=== PATIENT | female | born 1990 | race African-American/Black ===

== ENCOUNTER 2016-10-06 17:16 | Emergency (ER) | payer OTHER ==
[2016-10-06 17:40] VITALS: BP 142/71; PULSE 61; TEMP 97.7; BMI 26.6
== END 2016-10-06 20:05 | disposition left against medical advice (07) ==
LOC: JER 17:16
DX: Z53.21 Procedure and treatment not carried out due to patient leaving prior to being seen by health care provider (principal)
CPT/HCPCS: 99281-25

== ENCOUNTER 2017-03-11 16:35 | Emergency (ER) | payer OTHER ==
[2017-03-11 16:43] VITALS: BP 140/64; PULSE 70; TEMP 99.1; BMI 27.9
--- NOTE | 2017-03-11 19:41 | PDOC ---
History of Present Illness - General Chief Complaint: Pain Stated Complaint: EVALUATION Time Seen by Provider: 03/11/17 19:40 - History of Present Illness Initial Comments: 03/11/17 19:53 patient left prior to my evaluation Past History - Past Medical History Allergies/Adverse Reactions: Allergies Allergy/AdvReac Type Severity Reaction Status Date / Time No Known Allergies Allergy Verified 03/11/17 16:43 Home Medications: Ambulatory Orders Sulfamethoxazole/Trimethoprim [Bactrim Ds -] 1 tab PO BID #14 tablet 05/23/16 Asthma: Yes - Psycho/Social/Smoking Cessation Hx Anxiety: No Suicidal Ideation: No Smoking History: Current some day smoker Have you smoked in the past 12 months: No Number of Cigarettes Smoked Daily: 3 Information on smoking cessation initiated: No Hx Alcohol Use: Yes (SOCIAL) Drug/Substance Use Hx: No Substance Use Type: None *Physical Exam - Vital Signs Last Vital Signs Temp Pulse Resp BP Pulse Ox 99.1 F 70 20 140/64 10 L 03/11/17 16:40 03/11/17 16:40 03/11/17 16:40 03/11/17 16:40 03/11/17 16:40 *DC/Admit/Observation/Transfer Diagnosis at time of Disposition: Evaluation by medical service required - Discharge Dispostion Disposition: LEFT BEFORE [facility] - Referrals Referrals: STAFF,NOT ON [Primary Care Provider] -
== END 2017-03-11 20:00 | disposition left against medical advice (07) ==
LOC: JER 16:35
DX: Z53.21 Procedure and treatment not carried out due to patient leaving prior to being seen by health care provider (principal)
CPT/HCPCS: 99281-25

== ENCOUNTER 2017-04-01 15:22 | Emergency (ER) | payer OTHER ==
[2017-04-01 15:43] VITALS: BP 140/58; PULSE 68; TEMP 98.5; BMI 28.3
[2017-04-01] MEDS ORDERED: CYCLOBENZAPRINE HCL 10 MG TABLET (FP) PO ONE (16:20)
[2017-04-01] MEDS ORDERED: KETOROLAC TROMETHAMINE 60 MG/2 ML VIAL IM ONE (16:20)
[2017-04-01] MEDS ORDERED: KETOROLAC TROMETHAMINE 60 MG/2 ML VIAL ONE (16:21)
[2017-04-01] MEDS ORDERED: CYCLOBENZAPRINE HCL 10 MG TABLET (FP) ONE (16:22)
--- NOTE | 2017-04-01 16:28 | PDOC ---
History of Present Illness - General Chief Complaint: Pain Stated Complaint: LT ARM PAIN Time Seen by Provider: 04/01/17 16:11 History Source: Patient Exam Limitations: No Limitations - History of Present Illness Initial Comments: 04/01/17 16:39 she came for evaluation of left shoulder and arm pain. States onset was 2 days ago and is progressively become worse. States was concerned she may have slept on something wrong, denies any knowledge of recent history or exercise change, but has a toddler daughter which involves frequent heavy lifting. Took Naprosyn yesterday with some mild relief. Denies fever, cough, chest pain or palpitations, any rashes or lesions. 04/01/17 17:40 Occurred: reports: just prior to arrival Severity: reports: moderate Pain Location: reports: upper extremity (left shoulder) Modifying Factors: improves with: None Loss of Consciousness: no loss of consciousness Associated Symptoms (Fall): denies symptoms Past History - Travel Traveled outside of the country in the last 30 days: No Close contact w/someone who was outside of country & ill: No - Past Medical History Allergies/Adverse Reactions: Allergies Allergy/AdvReac Type Severity Reaction Status Date / Time No Known Allergies Allergy Verified 04/01/17 15:39 Home Medications: Ambulatory Orders NK [No Known Home Medication] 04/01/17 Asthma: Yes - Psycho/Social/Smoking Cessation Hx Anxiety: No Suicidal Ideation: No Smoking History: Former smoker Have you smoked in the past 12 months: Yes Number of Cigarettes Smoked Daily: 3 Information on smoking cessation initiated: No Hx Alcohol Use: Yes (SOCIAL) Drug/Substance Use Hx: No Substance Use Type: None Trauma Specific PMHX - Complaint Specific PMHX Back Injury: No Neck Injury: No Review of Systems - Review of Systems Able to Perform ROS?: Yes Is the patient limited Maltese proficient: Yes Constitutional: Yes: Symptoms Reported, See HPI, Malaise HEENTM: Yes: See HPI. No: Symptoms Reported Respiratory: Yes: Symptoms reported Musculoskeletal: Yes: Symptoms Reported, See HPI, Joint Pain Integumentary: Yes: Symptoms Reported All Other Systems: Reviewed and Negative *Physical Exam - Vital Signs Last Vital Signs Temp Pulse Resp BP Pulse Ox 98.5 F 68 20 140/58 100 04/01/17 15:39 04/01/17 15:39 04/01/17 15:39 04/01/17 15:39 04/01/17 15:39 - Physical Exam General Appearance: Yes: Nourished, Appropriately Dressed, Apparent Distress HEENT: positive: MARQUITA, Normal ENT Inspection, TMs Normal, Pharynx Normal Neck: positive: Tender, Supple Respiratory/Chest: positive: Lungs Clear Gastrointestinal/Abdominal: positive: Soft. negative: Tender Musculoskeletal: positive: Normal Inspection, Decreased Range of Motion ( however patient able to abduct past 180, forward flexion and posterior fraction. Pain is reproduced with for flexion against resistance at approximately 90. Has strong range of motion to elbow hand and wrist, no pain with supination and pronation at elbow, and no bone tenderness along scapular or clavicular bones. 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, Fully Oriented, Alert, Normal Mood/ Affect, Normal Response, Motor Strength 5/5 *DC/Admit/Observation/Transfer Diagnosis at time of Disposition: Left shoulder strain Qualifiers: Encounter type: initial encounter Qualified Code(s): S46.912A - Strain of unspecified muscle, fascia and tendon at shoulder and upper arm level, left arm , initial encounter - Discharge Dispostion Disposition: HOME Condition at time of disposition: Stable Admit: No - Referrals Referrals: STAFF,NOT ON [Primary Care Provider] - - Patient Instructions Printed Discharge Instructions: DI for Shoulder Sprain Additional Instructions: Rest, ice to area on and off for 15 minutes 4-6 times a day Avoid heavy lifting or exercise until pain and swelling is resolved or until further directed Keep area highly elevated to reduce swelling Use splints/Maxwell wrap as directed Followup with orthopedist in one to 2 days if not improving, if significantly improved may wait one week for followup with orthopedist May use ibuprofen 2-200 mg tablets every 6 hours as needed for pain
== END 2017-04-01 16:46 | disposition home or self-care (01) ==
LOC: JERFT 15:22
PROC: 3E0233Z Introduction of Anti-inflammatory into Muscle, Percutaneous Approach (ICD-10-PCS; principal; 2017-04-01)
DX: S46.912A Strain of unspecified muscle, fascia and tendon at shoulder and upper arm level, left arm, initial encounter (principal); X58.XXXA Exposure to other specified factors, initial encounter; Y93.89 Activity, other specified; Y92.9 Unspecified place or not applicable; Z87.891 Personal history of nicotine dependence; J45.909 Unspecified asthma, uncomplicated
CPT/HCPCS: 96372; 99281-25

== ENCOUNTER 2017-10-03 10:02 | Emergency (ER) | payer OTHER ==
[2017-10-03 10:08] VITALS: TEMP 99; BMI 25.5
--- NOTE | 2017-10-03 10:51 | PDOC ---
History of Present Illness - General History Source: Patient Exam Limitations: No Limitations - History of Present Illness Initial Comments: 10/03/17 11:50 The patient is a 27 year old female with no significant PMH who presents to the emergency department with right upper quadrant pain that began approximately 2 days ago. The patient describes the RUQ pain as squeezing and intermittent. The patient states the RUQ pain is worsened by leaning forward and resolves on its own after a couple of minutes. The patient reports the patient is worse after eating. The patient notes some nausea and dry cough secondary to her RUQ pain. The patient states she went to an Urgent Care and received a UA but left before receiving a diagnosis. The patient denies chest pain, shortness of breath, headache and dizziness. Denies fever, chills, vomit, diarrhea and constipation. Denies dysuria, frequency, urgency and hematuria. Allergies: NKA Past surgical history: None reported. Social history: Alcohol use. Marijuana use. No reported cigarette use. PCP: Dr. Cagle <Clarisse Gaitan - Last Filed: 10/03/17 13:35> <Elaina Amado - Last Filed: 10/03/17 16:06> - General Chief Complaint: Pain Stated Complaint: LOWER RT SIDE ABD PAIN Time Seen by Provider: 10/03/17 10:51 Past History <Clarisse Gaitan - Last Filed: 10/03/17 13:35> - Past Medical History Asthma: Yes COPD: No - Suicide/Smoking/Psychosocial Hx Smoking History: Never smoked Have you smoked in the past 12 months: Yes Number of Cigarettes Smoked Daily: 3 Information on smoking cessation initiated: No Hx Alcohol Use: Yes (SOCIAL) Drug/Substance Use Hx: Yes (JULIETH) Substance Use Type: Marijuana <Elaina Amado - Last Filed: 10/03/17 16:06> - Past Medical History Allergies/Adverse Reactions: Allergies Allergy/AdvReac Type Severity Reaction Status Date / Time No Known Allergies Allergy Verified 10/03/17 10:04 Home Medications: Ambulatory Orders NK [No Known Home Medication] 04/01/17 Review of Systems - Review of Systems Able to Perform ROS?: Yes Comments:: 10/03/17 11:55 ADULT ROS GENERAL/CONSTITUTIONAL: No fever or chills. No weakness. HEAD, EYES, EARS, NOSE AND THROAT: No change in vision. No ear pain or discharge. No sore throat. CARDIOVASCULAR: No chest pain or shortness of breath. RESPIRATORY: No cough, wheezing, or hemoptysis. GASTROINTESTINAL: (+) RUQ pain. (+) Nausea. No vomiting, diarrhea or constipation. GENITOURINARY: No dysuria, frequency, or change in urination. MUSCULOSKELETAL: No joint or muscle swelling or pain. No neck or back pain. SKIN: No rash NEUROLOGIC: No headache, vertigo, loss of consciousness, or change in strength/ sensation. ENDOCRINE: No increased thirst. No abnormal weight change. HEMATOLOGIC/LYMPHATIC: No anemia, easy bleeding, or history of blood clots. ALLERGIC/IMMUNOLOGIC: No hives or skin allergy. <Clarisse Gaitan - Last Filed: 10/03/17 13:35> *Physical Exam - Vital Signs Last Vital Signs Temp Pulse Resp BP Pulse Ox 99.0 F 88 18 125/61 100 10/03/17 10:05 10/03/17 10:05 10/03/17 10:05 10/03/17 10:05 10/03/17 10:05 - Physical Exam Comments: 10/03/17 11:56 GENERAL: Awake, alert, and fully oriented, in no acute distress HEAD: No signs of trauma EYES: PERRLA, EOMI, sclera anicteric, conjunctiva clear ENT: Auricles normal inspection, hearing grossly normal, nares patent, oropharynx clear without exudates. Moist mucosa NECK: Normal ROM, supple, no lymphadenopathy, JVD, or masses LUNGS: Breath sounds equal, clear to auscultation bilaterally. No wheezes, and no crackles HEART: Regular rate and rhythm, normal S1 and S2, no murmurs, rubs or gallops ABDOMEN: Soft, nontender, normoactive bowel sounds. No guarding, no rebound. No masses EXTREMITIES: Normal range of motion, no edema. No clubbing or cyanosis. No cords, erythema, or tenderness NEUROLOGICAL: Cranial nerves II through XII grossly intact. Normal speech, normal gait SKIN: Warm, Dry, normal turgor, no rashes or lesions noted. <Clarisse Gaitan - Last Filed: 10/03/17 13:35> - Vital Signs Last Vital Signs Temp Pulse Resp BP Pulse Ox 99.0 F 88 18 125/61 100 10/03/17 10:05 10/03/17 10:05 10/03/17 10:05 10/03/17 10:05 10/03/17 10:05 <Elaina Amado - Last Filed: 10/03/17 16:06> ED Treatment Course - LABORATORY CBC & Chemistry Diagram: 10/03/17 13:20 10/03/17 13:20 <Clarisse Gaitan - Last Filed: 10/03/17 13:35> - LABORATORY CBC & Chemistry Diagram: 10/03/17 13:20 10/03/17 13:20 <Elaina Amado - Last Filed: 10/03/17 16:06> Medical Decision Making - Medical Decision Making <Clarisse Gaitan - Last Filed: 10/03/17 13:35> - Medical Decision Making 10/03/17 13:30 Pt presents to the ED complaining of two days of RUQ pain without vomiting or fever. Differential includes billiary disease, pancreatitis, PNA, pyelonephritis or nephrolithiasis, muscular pain, ectopic . Will check labs and RUQ US, UA, reassess. Will give pain control with toradol. 10/03/17 16:04 Labs and US are within normal limits, except for proteinuria and ketones. Patient is tolerating PO in the ED. Patient can be discharged with follow up for protenuria with PMD. <Elaina Amado - Last Filed: 10/03/17 16:06> *DC/Admit/Observation/Transfer - Attestations Scribe Attestion: 10/03/17 11:56 Documentation prepared by Clarisse Gaitan, acting as medical receptionist for Elaina Amado MD. <Clarisse Gaitan - Last Filed: 10/03/17 13:35> - Discharge Dispostion Admit: No <Elaina Amado - Last Filed: 10/03/17 16:06> Diagnosis at time of Disposition: Abdominal pain Qualifiers: Abdominal location: right upper quadrant Qualified Code(s): R10.11 - Right upper quadrant pain - Discharge Dispostion Disposition: HOME Condition at time of disposition: Good - Referrals Referrals: Saranya Cagle MD [Primary Care Provider] - - Patient Instructions Printed Discharge Instructions: DI for Abdominal Pain-Adult Additional Instructions: you have protein in your urine and should follow up with your PMD. You must return to the ED for high fever, severe pain, severe nausea and vomiting, other new or changing symptoms. - Post Discharge Activity
[2017-10-03] MEDS ORDERED: KETOROLAC TROMETHAMINE 30 MG/1 ML VIAL IVPUSH ONE (11:34)
[2017-10-03] MEDS ORDERED: KETOROLAC TROMETHAMINE 30 MG/1 ML VIAL ONE (12:59)
[2017-10-03 13:26] LABS: BASO % 0.5 % (0-2.0); EOS % 3.8 % (0-4.5); HEMATOCRIT 40.5 % (32.4-45.2); HEMOGLOBIN 12.9 GM/dL (10.7-15.3); LYMPH % 33.3 % (8-40); MCH 26.7 pg (25.7-33.7); MCHC 31.9 g/dl (32.0-36.0); MEAN CELL VOLUME 83.6 fl (80-96); MONO % 7.5 % (3.8-10.2); NEUT % 54.9 % (42.8-82.8); PLATELET COUNT 294 K/MM3 (134-434); RBC 4.84 M/mm3 (3.60-5.2); RDW 16.4 % (11.6-15.6); WHITE BLOOD COUNT 7.4 K/mm3 (4.0-10.0)
[2017-10-03 14:08] LABS: ALBUMIN 3.6 g/dl (3.4-5.0); ALK PHOS 107 U/L (45-117); ANION GAP 8 (8-16); BILIRUBIN,TOTAL 0.3 mg/dL (0.2-1.0); BLOOD UREA NITROGEN 12 mg/dL (7-18); CALCIUM 8.7 mg/dL (8.5-10.1); CHLORIDE 107 mmol/L (98-107); CO2 27 mmol/L (21-32); CREATININE 0.7 mg/dL (0.55-1.02); GLUCOSE,RANDOM 80 mg/dL (74-106); LIPASE 160 U/L (73-393); POTASSIUM 3.7 mmol/L (3.5-5.1); SGOT/AST 9 U/L (15-37); SGPT/ALT 18 U/L (12-78); SODIUM 142 mmol/L (136-145); TOT PROT 7.4 g/dl (6.4-8.2)
[2017-10-03 15:15] LABS: URINE APPEARANCE TURBID; URINE BLOOD NEGATIVE (NEGATIVE); URINE COLOR YELLOW; URINE GLUCOSE (UA) NEGATIVE (NEGATIVE); URINE KETONE TRACE (NEGATIVE); URINE LEUK ESTERASE NEGATIVE (NEGATIVE); URINE NITRITE NEGATIVE (NEGATIVE); URINE UROBILINOGEN 4.0 E.U/dl mg/dL (0.2-1.0)
[2017-10-03 15:16] LABS: URINE PROTEIN 2+ (NEGATIVE)
[2017-10-03 15:17] LABS: EPI CELLS MODERATE /HPF (FEW); URINE MUCUS MANY; YEAST FEW
[2017-10-03 15:18] LABS: HCG,QUALITATIVE URINE NEGATIVE
[2017-10-03 18:48] VITALS: BP 118/65; PULSE 72
== END 2017-10-03 18:47 | disposition home or self-care (01) ==
LOC: JER 10:02
PROC: 3E0333Z Introduction of Anti-inflammatory into Peripheral Vein, Percutaneous Approach (ICD-10-PCS; principal; 2017-10-03)
DX: R10.11 Right upper quadrant pain (principal)
CPT/HCPCS: 36415; 76705-TC; 80053; 81003; 81015; 83690; 84703; 85025; 96372; 99283-25

== ENCOUNTER 2019-03-01 19:36 | Emergency (ER) | payer OTHER ==
[2019-03-01 19:41] VITALS: BP 120/68; PULSE 67; TEMP 98.3; BMI 24.9
--- NOTE | 2019-03-01 19:42 | PDOC ---
Rapid Medical Evaluation Chief Complaint: Laceration Time Seen by Provider: 03/01/19 19:40 Medical Evaluation: Allergies Allergy/AdvReac Type Severity Reaction Status Date / Time No Known Allergies Allergy Verified 10/03/17 10:04 Vital Signs Temp Pulse Resp BP Pulse Ox 98.3 F 67 20 120/68 99 03/01/19 19:37 03/01/19 19:37 03/01/19 19:37 03/01/19 19:37 03/01/19 19:37 03/01/19 19:40 Patient complains of: + lac to left 1st digit base, utd tdap Patient on brief exam: from of rt 1st digit, 2.5 cm linear palmar lac to web/ base of finger. FROM of digit actively Patient ordered for: hand xray Patient to proceed to the ED Discharge Disposition - Diagnosis Laceration of finger - Referrals - Patient Instructions - Post Discharge Activity
[2019-03-01] MEDS ORDERED: BACITRACIN 15 GM TUBE TOPICAL OINTMENT ONE (20:10)
--- NOTE | 2019-03-01 20:14 | PDOC ---
History of Present Illness - General Chief Complaint: Laceration Stated Complaint: GLASS IN RIGHT HAND Time Seen by Provider: 03/01/19 19:40 - History of Present Illness Initial Comments: 03/01/19 20:10 28-year-old female without comorbidities presents for evaluation of right hand laceration while cleaning dishes at home she cut herself with a plate that was broken. She is current on tetanus Past History - Past Medical History Allergies/Adverse Reactions: Allergies Allergy/AdvReac Type Severity Reaction Status Date / Time No Known Allergies Allergy Verified 10/03/17 10:04 Home Medications: Ambulatory Orders NK [No Known Home Medication] 04/01/17 Asthma: Yes COPD: No - Suicide/Smoking/Psychosocial Hx Smoking History: Never smoked Have you smoked in the past 12 months: No Number of Cigarettes Smoked Daily: 3 Information on smoking cessation initiated: No Hx Alcohol Use: No Drug/Substance Use Hx: No Substance Use Type: Marijuana Review of Systems - Review of Systems Musculoskeletal: Yes: See HPI *Physical Exam - Vital Signs Last Vital Signs Temp Pulse Resp BP Pulse Ox 98.3 F 67 20 120/68 99 03/01/19 19:37 03/01/19 19:37 03/01/19 19:37 03/01/19 19:37 03/01/19 19:37 - Physical Exam Comments: 03/01/19 20:11 There is approximately 1/2 cm laceration in the first digital space between the thumb and the index finger. The laceration is at the base of the thumb. There is subcutaneous fat is exposed there are no gross sensory motor deficits flexor and extensor tendon function work independently. Neurovascularly intact. Medical Decision Making - Medical Decision Making 03/01/19 20:11 With 1% lidocaine the wound was anesthetized aseptically with 6 mL. The wound was explored to its base in a bloodless field there was no foreign body identified. The edges were approximated and closed with 3 interrupted 4-0 Prolene sutures. Prior to closure the wound was copiously irrigated with normal saline. X-rays did not show a foreign body. This was tolerated well a dry sterile dressing was placed. *DC/Admit/Observation/Transfer Diagnosis at time of Disposition: Laceration of hand, right Diagnosis at time of Disposition: (Ruled Out): Laceration of finger, Laceration of left hand - Discharge Dispostion Disposition: HOME Condition at time of disposition: Stable Decision to Admit order: No - Referrals Referrals: Von Fung MD [Staff Physician] - - Patient Instructions Printed Discharge Instructions: DI for Laceration Repair Additional Instructions: Please keep the dressing on for 48 hours. After 48 hours you may remove the dressing and wash the hand with soap and water and leave the wound open to air. If you are working he may cover the wound with a dry sterile dressing such as a large Band-Aid. Return to the emergency room should there be any increasing pain redness drainage or swelling. Follow-up with hand surgery in 2-3 days for a wound check or return to the emergency room in 10 days, sooner if problems develop for suture removal. Sutures out no less than 10 days. - Post Discharge Activity Forms/Work/School Notes: Back to Work
== END 2019-03-01 20:17 | disposition home or self-care (01) ==
LOC: JERFT 19:36
PROC: 0HQFXZZ Repair Right Hand Skin, External Approach (ICD-10-PCS; principal; 2019-03-01)
DX: S61.411A Laceration without foreign body of right hand, initial encounter (principal); W25.XXXA Contact with sharp glass, initial encounter; Y93.G1 Activity, food preparation and clean up; Y92.030 Kitchen in apartment as the place of occurrence of the external cause; Y99.8 Other external cause status
CPT/HCPCS: 12001-25; 73140-TC-RT-FY; 99281-25

== ENCOUNTER 2019-03-04 12:39 | Emergency (ER) | payer OTHER ==
[2019-03-04 12:48] VITALS: BP 118/71; PULSE 65; TEMP 98.2; BMI 24.9
--- NOTE | 2019-03-04 12:49 | PDOC ---
Rapid Medical Evaluation Chief Complaint: Revisit,Wound Recheck Time Seen by Provider: 03/04/19 12:47 Medical Evaluation: Allergies Allergy/AdvReac Type Severity Reaction Status Date / Time No Known Allergies Allergy Verified 10/03/17 10:04 03/04/19 12:48 I have performed a brief in-person evaluation of this patient. The patient presents with a chief complaint of:wound check of R hand lac, s/p suture repair 2 days ago. No acute complaints today Pertinent physical exam findings:well seth healing wound I have ordered the following:nothing The patient will proceed to the ED for further evaluation. Discharge Disposition - Diagnosis Visit for wound check - Referrals - Patient Instructions - Post Discharge Activity
--- NOTE | 2019-03-04 13:17 | PDOC ---
History of Present Illness - General Chief Complaint: Revisit,Wound Recheck Stated Complaint: STITCH REMOVAL Time Seen by Provider: 03/04/19 12:47 - History of Present Illness Initial Comments: 03/04/19 13:20 Patient presents for wound check status post stitches on Thursday was cut with glass It is now 3 days after the injury the wound is healing well there is no sign of redness or infection she will mild pain which is persistent constant worse with movement no exacerbating or alleviating factors. Past History - Past Medical History Allergies/Adverse Reactions: Allergies Allergy/AdvReac Type Severity Reaction Status Date / Time No Known Allergies Allergy Verified 10/03/17 10:04 Home Medications: Ambulatory Orders NK [No Known Home Medication] 04/01/17 Asthma: Yes COPD: No - Suicide/Smoking/Psychosocial Hx Smoking History: Never smoked Have you smoked in the past 12 months: No Number of Cigarettes Smoked Daily: 3 Hx Alcohol Use: No Drug/Substance Use Hx: No Substance Use Type: Marijuana Review of Systems - Review of Systems Comments:: 03/04/19 13:20 ROS: A complete review of 10 out of 10 review of systems is taken and is negative apart from what is previously mentioned below and in the HPI. *Physical Exam - Vital Signs Last Vital Signs Temp Pulse Resp BP Pulse Ox 98.2 F 65 16 118/71 100 03/04/19 12:47 03/04/19 12:47 03/04/19 12:47 03/04/19 12:47 03/04/19 12:47 - Physical Exam Comments: 03/04/19 13:22 Vitals: Triage Vital signs reviewed General Appearance: no acute distress, well nourished well developed, Head: Atraumatic, Extremities: Full range of motion to all extremities, no cyanosis, clubbing, or edema well-healing sutures to right base of thumb no signs of infection. Skin: Warm and dry, no rashes or lesions, no rash, no petechiae Psych: normal mood, normal affect Medical Decision Making - Medical Decision Making 03/04/19 13:23 Well-healing patient will return to the ED in 7 days total for suture removal. Findings, the need for follow-up and strict return instructions discussed with patient. *DC/Admit/Observation/Transfer Diagnosis at time of Disposition: Visit for wound check - Discharge Dispostion Disposition: HOME Decision to Admit order: No - Referrals - Patient Instructions Printed Discharge Instructions: How to Care for a Laceration After Repair Additional Instructions: Return to the ED next Thursday for suture removal or immediately for any signs of infection or for any concerns. - Post Discharge Activity
== END 2019-03-04 13:35 | disposition home or self-care (01) ==
LOC: JERFT 12:39
DX: Z48.817 Encounter for surgical aftercare following surgery on the skin and subcutaneous tissue (principal)
CPT/HCPCS: 99281-25

== ENCOUNTER 2019-03-08 12:39 | Emergency (ER) | payer OTHER | END 2019-03-08 13:05 | disposition home or self-care (01) | LOC: JERFT 12:39 ==

== ENCOUNTER 2019-03-13 12:38 | Emergency (ER) | payer OTHER ==
[2019-03-13 13:11] VITALS: BP 100/72; PULSE 83; TEMP 98.1; BMI 24.9
--- NOTE | 2019-03-13 13:25 | PDOC ---
Suture Removal/Wound Check HPI - History of Present Illness Chief Complaint: Suture/Staple Removal(Here) Stated Complaint: STITCH REMOVAL Time Seen by Provider: 03/13/19 13:10 History Source: Yes: Patient Exam Limitations: Yes: No Limitations Past History - Past Medical History Allergies/Adverse Reactions: Allergies Allergy/AdvReac Type Severity Reaction Status Date / Time No Known Allergies Allergy Verified 03/13/19 13:17 Home Medications: Ambulatory Orders NK [No Known Home Medication] 04/01/17 Asthma: Yes COPD: No - Immunization History Immunization Up to Date: No - Suicide/Smoking/Psychosocial Hx Smoking History: Never smoked Have you smoked in the past 12 months: No Number of Cigarettes Smoked Daily: 3 Hx Alcohol Use: No Drug/Substance Use Hx: No Substance Use Type: Marijuana Suture Removal/Wound Check PE - Physical Exam Laceration/Wound Check Symptoms: reports: Pain (mild), Improved. denies: Fever , Chills, Redness, Discharge, Bleeding Location of Laceration/Wound: right: Hand (site of laceration healed, no discharge from site, no erythema) *Physical Exam - Vital Signs Last Vital Signs Temp Pulse Resp BP Pulse Ox 98.1 F 83 20 100/72 100 03/13/19 13:08 03/13/19 13:08 03/13/19 13:08 03/13/19 13:08 03/13/19 13:08 Medical Decision Making - Medical Decision Making 28 y/o F presents for suture removal s/p R hand laceration along base of R thumb , repaired on 03/01. Patient endorses mild pain to site as she accidentally bumped her hand against something. Denies fever, discharge, erythema Suture site healed 3 stitches removed stable for dc 03/13/19 13:36 *DC/Admit/Observation/Transfer Diagnosis at time of Disposition: Visit for suture removal - Discharge Dispostion Disposition: HOME Condition at time of disposition: Stable Decision to Admit order: No - Referrals Referrals: Fernando Cunningham MD [Primary Care Provider] - 2 Days - Patient Instructions Printed Discharge Instructions: DI for Suture Removal - Post Discharge Activity Forms/Work/School Notes: Back to Work
== END 2019-03-13 13:40 | disposition home or self-care (01) ==
LOC: JERFT 12:38
DX: Z48.817 Encounter for surgical aftercare following surgery on the skin and subcutaneous tissue (principal); Z48.02 Encounter for removal of sutures
CPT/HCPCS: 99281-25

== ENCOUNTER 2022-06-07 08:43 | Emergency (ER) | payer OTHER ==
[2022-06-07 09:02] VITALS: BP 117/73; PULSE 64; RESP 18; TEMP 98.4; BMI 26.6
[2022-06-07 10:40] LABS: BASO % 0.4 % (0-2.0); EOS % 2.7 % (0-4.5); HEMATOCRIT 36.2 % (32.4-45.2); HEMOGLOBIN 11.8 GM/dL (10.7-15.3); LYMPH % 39.1 % (8-40); MCH 26.2 pg (25.7-33.7); MCHC 32.7 g/dl (32.0-36.0); MEAN CELL VOLUME 80.3 fl (80-96); MEAN PLT VOLUME 8.3 fl (7.5-11.1); MONO % 9.6 % (3.8-10.2); NEUT % 48.2 % (42.8-82.8); PLATELET COUNT 329 10^3/uL (134-434); RBC 4.51 M/mm3 (3.60-5.2); RDW 17.7 % (11.6-15.6); WHITE BLOOD COUNT 5.8 K/mm3 (4.0-10.0)
[2022-06-07 10:51] LABS: CALCIUM 8.5 mg/dL (8.5-10.1)
[2022-06-07 10:52] LABS: ALBUMIN 3.8 g/dl (3.4-5.0); BLOOD UREA NITROGEN 8.9 mg/dL (7-18); EPI CELLS 1 /uL (0-25.1); HYALINE CASTS 0 /uL (0-3.1); URINE APPEARANCE CLOUDY; URINE BILIRUBIN 1+ (NEGATIVE); URINE COLOR RED; URINE GLUCOSE (UA) NEGATIVE (NEGATIVE); URINE KETONE NEGATIVE (NEGATIVE); URINE LEUK ESTERASE 2+ (NEGATIVE); URINE NITRITE POSITIVE (NEGATIVE); URINE PROTEIN 3+ (NEGATIVE); URINE RBC 14 /uL (0-23.9); URINE UROBILINOGEN 0.2 mg/dL (0.2-1.0); URINE WBC 1 /uL (0-25.8)
[2022-06-07 10:55] LABS: CREATININE 0.7 mg/dL (0.55-1.3)
[2022-06-07 10:57] LABS: BILIRUBIN,TOTAL 0.6 mg/dL (0.2-1); TOT PROT 7.5 g/dl (6.4-8.2)
[2022-06-07 11:54] LABS: URINE BACTERIA 5.7 /uL (0-1359)
== END 2022-06-07 12:21 | disposition left against medical advice (07) ==
LOC: JER 08:43
DX: O03.9 Complete or unspecified spontaneous abortion without complication (principal); Z3A.00 Weeks of gestation of pregnancy not specified
CPT/HCPCS: 36415; 80053; 81003; 84702; 85025; 86850; 86900; 86901; 87086; 99283-25

== ENCOUNTER 2023-05-26 09:23 | Emergency (ER) | payer OTHER ==
[2023-05-26 09:36] VITALS: BP 111/68; PULSE 75; RESP 20; TEMP 98; BMI 26.7
[2023-05-26 11:07] LABS: HCG,QUALITATIVE URINE Positive
[2023-05-26 11:09] LABS: PH,URINE 6.5 (5.0-8.0); URINE APPEARANCE CLEAR; URINE BILIRUBIN NEGATIVE (NEGATIVE); URINE COLOR YELLOW; URINE GLUCOSE (UA) NEGATIVE (NEGATIVE); URINE KETONE 1+ (NEGATIVE); URINE LEUK ESTERASE NEGATIVE (NEGATIVE); URINE NITRITE NEGATIVE (NEGATIVE); URINE PROTEIN NEGATIVE (NEGATIVE); URINE UROBILINOGEN 0.2 mg/dL (0.2-1.0)
[2023-05-26 11:38] LABS: BASO % 0.4 % (0-2.0); EOS % 1.7 % (0-4.5); HEMATOCRIT 31.5 % (32.4-45.2); HEMOGLOBIN 10.5 GM/dL (10.7-15.3); LYMPH % 30.8 % (8-40); MCH 25.7 pg (25.7-33.7); MCHC 33.3 g/dl (32.0-36.0); MEAN PLT VOLUME 7.8 fl (7.5-11.1); MONO % 7.6 % (3.8-10.2); NEUT % 59.5 % (42.8-82.8); PLATELET COUNT 275 10^3/uL (134-434); RBC 4.09 M/mm3 (3.60-5.2); RDW 18.3 % (11.6-15.6); WHITE BLOOD COUNT 6.9 K/mm3 (4.0-10.0)
[2023-05-26 12:06] LABS: POTASSIUM 4.1 mmol/L (3.5-5.1)
[2023-05-26 12:08] LABS: CALCIUM 8.5 mg/dL (8.5-10.1)
[2023-05-26 12:09] LABS: ALBUMIN 3.7 g/dl (3.4-5.0); BLOOD UREA NITROGEN 7.2 mg/dL (7-18)
[2023-05-26 12:11] LABS: CREATININE 0.6 mg/dL (0.55-1.3)
[2023-05-26 12:13] LABS: BILIRUBIN,TOTAL 0.6 mg/dL (0.2-1); TOT PROT 7.2 g/dl (6.4-8.2)
== END 2023-05-26 15:19 | disposition home or self-care (01) ==
LOC: JER 09:23
DX: O26.891 Other specified pregnancy related conditions, first trimester (principal); R10.30 Lower abdominal pain, unspecified; Z34.91 Encounter for supervision of normal pregnancy, unspecified, first trimester; Z3A.00 Weeks of gestation of pregnancy not specified
CPT/HCPCS: 36415; 76817-TC; 80053; 81003; 84702; 84703; 85025; 86850; 86900; 86901; 87086; 99284-25

== ENCOUNTER 2023-07-05 09:43 | Emergency (ER) | payer BC, OTHER ==
[2023-07-05 09:46] VITALS: BP 118/50; PULSE 90; RESP 18; TEMP 98.1; BMI 29.3
[2023-07-05 11:23] LABS: PH,URINE 6.5 (5.0-8.0); URINE APPEARANCE CLEAR; URINE BILIRUBIN NEGATIVE (NEGATIVE); URINE COLOR YELLOW; URINE GLUCOSE (UA) NEGATIVE (NEGATIVE); URINE KETONE NEGATIVE (NEGATIVE); URINE LEUK ESTERASE NEGATIVE (NEGATIVE); URINE NITRITE NEGATIVE (NEGATIVE); URINE PROTEIN NEGATIVE (NEGATIVE); URINE UROBILINOGEN 0.2 mg/dL (0.2-1.0)
[2023-07-05] MEDS ORDERED: ACETAMINOPHEN 325 MG TABLET (FP) PO ONE (11:27)
[2023-07-05] MEDS ORDERED: ACETAMINOPHEN 325 MG TABLET (FP) ONE (11:48)
[2023-07-05 12:16] LABS: BASO % 0.2 % (0-2.0); EOS % 1.6 % (0-4.5); HEMATOCRIT 35.3 % (32.4-45.2); HEMOGLOBIN 11.6 GM/dL (10.7-15.3); MCH 27.7 pg (25.7-33.7); MCHC 32.8 g/dl (32.0-36.0); MEAN CELL VOLUME 84.5 fl (80-96); MEAN PLT VOLUME 7.8 fl (7.5-11.1); MONO % 4.9 % (3.8-10.2); NEUT % 77.3 % (42.8-82.8); PLATELET COUNT 267 10^3/uL (134-434); RBC 4.17 M/mm3 (3.60-5.2); RDW 20.1 % (11.6-15.6); WHITE BLOOD COUNT 7.6 K/mm3 (4.0-10.0)
[2023-07-05 12:40] LABS: POTASSIUM 3.9 mmol/L (3.5-5.1)
[2023-07-05 12:42] LABS: ALBUMIN 3.1 g/dl (3.4-5.0)
[2023-07-05 12:43] LABS: BLOOD UREA NITROGEN 8.3 mg/dL (7-18)
[2023-07-05 12:45] LABS: CREATININE 0.6 mg/dL (0.55-1.3)
[2023-07-05 12:47] LABS: BILIRUBIN,TOTAL 0.2 mg/dL (0.2-1); TOT PROT 6.9 g/dl (6.4-8.2)
== END 2023-07-05 17:44 | disposition home or self-care (01) ==
LOC: JER 09:43
DX: O26.891 Other specified pregnancy related conditions, first trimester (principal); R10.31 Right lower quadrant pain; Z3A.11 11 weeks gestation of pregnancy
CPT/HCPCS: 36415; 72195-TC; 76801-TC; 76856-TC; 80053; 81003; 85025; 87086; 99285-25

== ENCOUNTER 2024-01-18 05:50 | Inpatient (IN) | payer BC ==
[2024-01-18] MEDS: ELECTROLYTE-148 SOLN 500 ML IV SCH ×2 (06:10→07:30)
[2024-01-18] MEDS: ELECTROLYTE-148 SOLN 500 ML IV ONE (06:30)
[2024-01-18] MEDS: CITRIC ACID/SODIUM CITRATE 30 ML UNIT-DOSE CUP PO ONE (07:15)
[2024-01-18] MEDS ORDERED: morphine SULFATE/PF 1 MG/2 ML (2cc Syringe - QUVA) ONE (07:53)
[2024-01-18] MEDS ORDERED: ONDANSETRON 4 MG/2 ML VIAL IVPUSH PRN (07:56)
[2024-01-18] MEDS ORDERED: LIGASURE IMPACT TP ONE (08:30)
[2024-01-18] MEDS: OXYTOCIN 20 UNITS in 0.9% NS 20 UNIT/1,000 ML INFUS.BAG IV SCH (09:01)
[2024-01-18] MEDS ORDERED: FENTANYL CITRATE/PF 50 MCG/ML VIAL ONE ×2 (09:12→09:56)
[2024-01-18] MEDS ORDERED: MIDAZOLAM HCL 2 MG/2 ML SINGLE DOSE VIAL ONE (09:32)
[2024-01-18 09:57] LABS: CORD BASE EXCESS -3.7 mmol/L (0-2); CORD HCO3 21.5 mmHg (20-29); CORD PCO2 39.4 mmHg (30-78); CORD pH 7.354 (7.14-7.44)
[2024-01-18 10:03] LABS: CORD HCO3 23.7 mmHg (20-29); CORD PCO2 59.1 mmHg (30-78); CORD pH 7.221 (7.14-7.44)
[2024-01-18] MEDS ORDERED: METHYLERGONOVINE MALEATE 0.2 MG/1 ML AMP IM PRN (10:24)
[2024-01-18] MEDS ORDERED: ACETAMINOPHEN 325 MG TABLET (FP) PO PRN (10:24)
[2024-01-18] MEDS: IBUPROFEN 800 MG/8 ML IJ IVPB SCH (10:35)
[2024-01-18] MEDS ORDERED: ACETAMINOPHEN INJECTION 100 ML IVPB ONE (11:49)
[2024-01-18] MEDS: ACETAMINOPHEN 1000 MG/100 ML BAG IVPB SCH (11:55)
[2024-01-18] MEDS ORDERED: OXYTOCIN 20 UNITS in 0.9% NS 20 UNIT/1,000 ML INFUS.BAG IV ONE (12:17)
[2024-01-18] MEDS ORDERED: oxyCODONE HCL 5 MG TABLET PO PRN (22:24)
[2024-01-18] MEDS: SIMETHICONE 80 MG TAB.CHEW (FP) PO PRN (22:27)
[2024-01-19 06:28] LABS: BASO % 0.4 % (0-2.0); EOS % 0.7 % (0-4.5); HEMATOCRIT 29.9 % (32.4-45.2); HEMOGLOBIN 9.9 GM/dL (10.7-15.3); LYMPH % 10.9 % (8-40); MCH 27.2 pg (25.7-33.7); MEAN CELL VOLUME 82.4 fl (80-96); MEAN PLT VOLUME 7.6 fl (7.5-11.1); MONO % 4.4 % (3.8-10.2); NEUT % 83.6 % (42.8-82.8); PLATELET COUNT 223 10^3/uL (134-434); RBC 3.63 M/mm3 (3.60-5.2); RDW 14.5 % (11.6-15.6); WHITE BLOOD COUNT 13.2 K/mm3 (4.0-10.0)
[2024-01-19] MEDS: IBUPROFEN 600 MG TABLET (FP) PO PRN (09:04)
[2024-01-19] MEDS ORDERED: BISACODYL 10 MG SUPP.RECT RC PRN (10:24)
[2024-01-20 14:12] VITALS: BP 119/73; PULSE 89; RESP 16; TEMP 97.8
== END 2024-01-20 17:40 | disposition home or self-care (01) | DRG 785 ==
LOC: JLDR 05:50 → J3W 12:20
PROVIDERS: ADMIT Obstetrics & Gynecology; ATTEND Obstetrics & Gynecology
PROC: 10D00Z1 Extraction of Products of Conception, Low, Open Approach (ICD-10-PCS; principal; 2024-01-18)
PROC: 0UT70ZZ Resection of Bilateral Fallopian Tubes, Open Approach (ICD-10-PCS; 2024-01-18)
DX: O34.211 Maternal care for low transverse scar from previous cesarean delivery (principal); Z3A.39 39 weeks gestation of pregnancy; Z37.0 Single live birth; Z30.2 Encounter for sterilization
CPT/HCPCS: 36415; 36600; 82803; 85025; 86850; 86900; 86901; 88302-TC; 88307-TC; J0131